=== PATIENT | male | born 1960 | race Two or more races ===

== ENCOUNTER 2019-09-05 15:58 | Emergency (ER) | payer OTHER ==
[~2019-09-05] VITALS: Ht 188 cm; Wt 97.5 kg
[~2019-09-05 15:58] MED LIST: KALETRA 100-251 EACH
== END 2019-09-05 19:37 | disposition home or self-care (01) ==
LOC: ER 15:58
DX: M79.661 Pain in right lower leg (principal); R25.8 Other abnormal involuntary movements

== ENCOUNTER 2019-11-19 16:39 | Emergency (ER) | payer OTHER ==
[~2019-11-19] VITALS: Ht 182.9 cm; Wt 93.0 kg
== END 2019-11-19 19:03 | disposition home or self-care (01) ==
LOC: ER 16:39
DX: M62.838 Other muscle spasm (principal); M54.2 Cervicalgia

== ENCOUNTER 2019-12-31 12:50 | Emergency (ER) | payer OTHER ==
[~2019-12-31] VITALS: Ht 188 cm; Wt 90.7 kg
[2019-12-31] MEDS ORDERED: KALETRA 100-251 EACH (12:56)
== END 2019-12-31 13:36 | disposition home or self-care (01) ==
LOC: ER 12:50
DX: S20.222A Contusion of left back wall of thorax, initial encounter (principal); S20.221A Contusion of right back wall of thorax, initial encounter; M54.2 Cervicalgia; V49.88XA Car occupant (driver) (passenger) injured in other specified transport accidents, initial encounter; Y93.89 Activity, other specified; Y92.413 State road as the place of occurrence of the external cause; Y99.8 Other external cause status

== ENCOUNTER → 2021-07-22 | Emergency (ER) | payer OTHER ==
[~2021-07-22] MED LIST changes: +CONVIVIR; +DOLOGEN CAPLET1 EACH PO; +TUSNEL LIQUID178 ML PO
== END | disposition left against medical advice (07) ==
LOC: ER 01:21
DX: Z53.20 Procedure and treatment not carried out because of patient's decision for unspecified reasons (principal)

== ENCOUNTER 2021-07-24 07:19 | Emergency (ER) | payer OTHER ==
[~2021-07-24] VITALS: Ht 188 cm; Wt 92.5 kg
== END 2021-07-24 13:25 | disposition home or self-care (01) ==
LOC: ER 07:19
DX: J40 Bronchitis, not specified as acute or chronic (principal)

== ENCOUNTER 2023-12-01 08:28 | Emergency (ER) | payer OTHER ==
[~2023-12-01] VITALS: Ht 188 cm; Wt 92.1 kg
[2023-12-01] MEDS ORDERED: BIKTARVY 30-121 EACH PO (08:45)
[2023-12-01 10:02] LABS: HEMATOCRIT 42.3 % (39.0-48.0); HEMOGLOBIN 14.5 g/dL (13-16.00); MEAN CELL VOLUME 88.1 fL (80.0-100.00); MEAN CORPUSCULAR HEMOGLOBIN 30.2 pg (27.00-32.0); MEAN CORPUSCULAR HGB CONC 34.3 g/dl (32.0-36.0); PLATELET COUNT 260 K/uL (150-450); RED BLOOD COUNT 4.81 M/uL (4.00-6.00); RED CELL DISTRIBUTION WIDTH 14.3 % (11.5-14.5)
[2023-12-01 10:24] LABS: CALCIUM 9.2 mg/dL (8.5-10.1); CREATININE SERUM 0.64 mg/dL (0.70-1.30); GFR 126.31; POTASSIUM 4.08 mEq/L (3.5-5.1)
== END 2023-12-01 12:24 | disposition home or self-care (01) ==
LOC: ER 08:28
PROVIDERS: General Practice
DX: R19.7 Diarrhea, unspecified (principal); Z21 Asymptomatic human immunodeficiency virus [HIV] infection status; Z20.822 Contact with and (suspected) exposure to COVID-19

== ENCOUNTER 2023-12-10 01:52 | Emergency (ER) | payer OTHER ==
[~2023-12-10] VITALS: Ht 188 cm; Wt 90.7 kg
[~2023-12-10 01:52] MED LIST changes: +BIKTARVY 30-121 EACH PO
[2023-12-10] MEDS ORDERED: CEFTRIAXONE SODIUM 2,000 MG VIAL IM STA (06:06)
[2023-12-10] MEDS ORDERED: HYDROCODONE/CHLORPHEN P-STIREX 5 ML ML PO STA (06:06)
== END 2023-12-10 05:52 | disposition home or self-care (01) ==
LOC: ER 01:52
DX: J06.9 Acute upper respiratory infection, unspecified (principal); R53.81 Other malaise